=== PATIENT | male | born 1955 | race Caucasian/White ===

== ENCOUNTER → 2024-02-26 08:02 | Outpatient (REF) | payer MEDICARE, BC, SELFPAY | LOC: RAD 08:02 | PROVIDERS: ATTENDING PHYSICIAN Family Medicine | DX: M17.12 Unilateral primary osteoarthritis, left knee (principal); M17.11 Unilateral primary osteoarthritis, right knee | CPT/HCPCS: 73562; 73565 ==

== ENCOUNTER 2024-08-12 07:25 | Day surgery (SDC) | payer MEDICARE, BC, SELFPAY | END 2024-08-12 09:39 | disposition home or self-care (01) | LOC: GI 07:25 | PROVIDERS: ATTENDING PHYSICIAN Internal Medicine | DX: Z12.11 Encounter for screening for malignant neoplasm of colon (principal); K64.8 Other hemorrhoids; K55.21 Angiodysplasia of colon with hemorrhage; D12.0 Benign neoplasm of cecum; D12.2 Benign neoplasm of ascending colon; K63.5 Polyp of colon; Z86.0101 Personal history of adenomatous and serrated colon polyps; Z80.0 Family history of malignant neoplasm of digestive organs | CPT/HCPCS: 45385; 45380; 88305 ==

== ENCOUNTER → 2024-09-07 07:13 | Outpatient (REF) | payer MEDICARE, BC, SELFPAY | LOC: MRI 07:13 | PROVIDERS: ATTENDING PHYSICIAN Internal Medicine; FAMILY PHYSICIAN Family Medicine | DX: E83.110 Hereditary hemochromatosis (principal); R79.89 Other specified abnormal findings of blood chemistry; R74.8 Abnormal levels of other serum enzymes | CPT/HCPCS: 74183; A9575 ==

== ENCOUNTER 2024-11-24 06:26 | Day surgery (SDC) | payer MEDICARE, BC, SELFPAY | END 2024-11-24 14:26 | disposition home or self-care (01) | LOC: GI 06:26 | PROVIDERS: ATTENDING PHYSICIAN Internal Medicine | DX: R12 Heartburn (principal); K22.89 Other specified disease of esophagus; K31.7 Polyp of stomach and duodenum; K22.2 Esophageal obstruction; R07.89 Other chest pain; D13.2 Benign neoplasm of duodenum; K29.70 Gastritis, unspecified, without bleeding | CPT/HCPCS: 43239; 88305; 88342 ==

== ENCOUNTER 2025-01-26 06:05 | Day surgery (SDC) | payer MEDICARE, BC, SELFPAY ==
[2025-01-26 06:47] VITALS: BMI 23.4
[2025-01-26 06:49] VITALS: BMI 23.4
[2025-01-26 06:51] VITALS: BP 156/83
[2025-01-26 09:51] VITALS: BP 122/71
[2025-01-26 10:00] VITALS: BP 117/72
[2025-01-26 10:15] VITALS: BP 125/72
[2025-01-26 10:30] VITALS: BP 136/63
== END 2025-01-26 10:44 | disposition home or self-care (01) ==
LOC: SDS 06:05
PROVIDERS: ATTENDING PHYSICIAN Internal Medicine Gastroenterology
DX: K22.89 Other specified disease of esophagus (principal); D21.4 Benign neoplasm of connective and other soft tissue of abdomen; K31.7 Polyp of stomach and duodenum; K86.9 Disease of pancreas, unspecified; Z79.01 Long term (current) use of anticoagulants
CPT/HCPCS: 43242; 88173; 88305; 88341; 88342